=== PATIENT | female | born 1990 | race Two or more races ===

== ENCOUNTER 2021-05-23 13:25 | Emergency (ER) | payer OTHER ==
[~2021-05-23] VITALS: Ht 162.6 cm; Wt 95.3 kg
[2021-05-23] MEDS ORDERED: CLARITIN10 M1 PO (13:36)
[2021-05-23] MEDS ORDERED: SINGULAIR10 MG PO (13:36)
== END 2021-05-23 17:33 | disposition home or self-care (01) ==
LOC: ER 13:25
DX: O46.91 Antepartum hemorrhage, unspecified, first trimester (principal); Z3A.08 8 weeks gestation of pregnancy

== ENCOUNTER 2021-08-25 12:00 | Outpatient (CLI) | payer OTHER ==
[~2021-08-25 12:00] MED LIST: CLARITIN10 M1 PO; SINGULAIR10 MG PO
== END 2021-08-25 12:46 | disposition home or self-care (01) ==
LOC: NST 12:00
PROVIDERS: ATTEND Obstetrics & Gynecology
DX: Z34.82 Encounter for supervision of other normal pregnancy, second trimester (principal)

== ENCOUNTER 2021-10-20 09:23 | Outpatient (CLI) | payer OTHER | END 2021-10-20 10:09 | disposition home or self-care (01) | LOC: NST 09:23 | PROVIDERS: ATTEND Obstetrics & Gynecology | DX: Z34.83 Encounter for supervision of other normal pregnancy, third trimester (principal) ==

== ENCOUNTER 2021-10-28 11:00 | Outpatient (CLI) | payer OTHER | END 2021-10-28 12:18 | disposition home or self-care (01) | LOC: NST 11:00 | PROVIDERS: ATTEND Obstetrics & Gynecology Maternal & Fetal Medicine | DX: Z34.83 Encounter for supervision of other normal pregnancy, third trimester (principal) ==

== ENCOUNTER 2021-12-01 10:30 | Outpatient (CLI) | payer OTHER | END 2021-12-01 15:06 | disposition home or self-care (01) | LOC: NST 10:30 | PROVIDERS: ATTEND Obstetrics & Gynecology | DX: Z34.83 Encounter for supervision of other normal pregnancy, third trimester (principal) ==

== ENCOUNTER 2021-12-11 12:15 | Inpatient (IN) | payer OTHER ==
[~2021-12-11] VITALS: Ht 162.6 cm; Wt 104.3 kg
[2021-12-16] MEDS ORDERED: PRENATAL TABLE1 EAC5 PO (03:30)
[2021-12-16] MEDS ORDERED: ALLER-EASE180 MG PO (03:31)
== END 2021-12-18 16:26 | disposition home or self-care (01) | DRG 807 ==
LOC: EDSTATUS 12:15 → OB/GYN 12-16 01:57 → LDR 12-16 01:57 → OB/GYN 12-16 04:15 → LDR 12-23 12:15
PROVIDERS: ADMIT Obstetrics & Gynecology; ATTEND Obstetrics & Gynecology
PROC: 10E0XZZ Delivery of Products of Conception, External Approach (ICD-10-PCS; principal; 2021-12-16)
PROC: 0KQM0ZZ Repair Perineum Muscle, Open Approach (ICD-10-PCS; 2021-12-16)
PROC: 4A1HXCZ Monitoring of Products of Conception, Cardiac Rate, External Approach (ICD-10-PCS; 2021-12-16)
DX: O70.1 Second degree perineal laceration during delivery (principal); Z37.0 Single live birth; Z3A.37 37 weeks gestation of pregnancy; Z20.822 Contact with and (suspected) exposure to COVID-19